=== PATIENT | female | born 1950 | race Caucasian/White ===

== ENCOUNTER 2018-07-24 06:03 | Day surgery (SDC) | payer MEDICARE, OTHER ==
[~2018-07-24 06:03] MED LIST: ACETAMINOPHEN 1,000 MG/100 ML BTL IV ONE; CEFAZOLIN 2 Gram 2 GM/50 ML BAG IVPB PRN; CELECOXIB 100 MG CAPSULE PO ONE; FAMOTIDINE 20MG TABLET PO ONE; MECLIZINE 25 MG TABLET PO ONE; METOCLOPRAMIDE 10 MG TABLET PO ONE; VANCOMYCIN HCL 1,000 MG in DEXTROSE 5 % IN WATER 250 ML IVPB ONE
[2018-07-24] MEDS ORDERED: EPHEDRINE SULFATE 50 MG/ML ML IV ONE (06:04)
[2018-07-24] MEDS ORDERED: BUPIVACAINE LIPOSOME 266MG/20ML VIAL IV ONE (06:04)
[2018-07-24] MEDS ORDERED: BUPIVACAINE 0.5% W/EPI MPF 30 ML VIAL IVP ONE (06:04)
[2018-07-24] MEDS ORDERED: MORPHINE SULFATE 10 MG/ML VIAL IVP ONE (06:04)
[2018-07-24] MEDS ORDERED: MIDAZOLAM HCL 2MG/2ML VIAL IV ONE (06:04)
[2018-07-24] MEDS ORDERED: VANCOMYCIN HCL 1 GM VIAL IVPB ONE (06:04)
[2018-07-24] MEDS ORDERED: DEXAMETHASONE 4 MG/ML 1ML VIAL IVP ONE (06:04)
[2018-07-24] MEDS ORDERED: KETOROLAC 30 MG/ML VIAL IVP ONE (06:04)
[2018-07-24] MEDS ORDERED: TRANEXAMIC ACID 1,000 MG/10 ML ML IV ONE ×2 (06:04)
[2018-07-24] MEDS ORDERED: **ER** KETAMINE HCL 500MG/10ML VIAL IV ONE (06:04)
[2018-07-24] MEDS ORDERED: ROPIVACAINE HCL (NAROPIN) /PF 5MG/ML 20ML VIAL IV ONE (06:04)
[2018-07-24] MEDS ORDERED: PROPOFOL 10 MG/ML VIAL IV ONE (06:04)
[2018-07-24 07:05] LABS: ABO GROUP O; ANTIBODY SCREEN NEGATIVE (NEGATIVE); RH TYPE POSITIVE
[2018-07-24] MEDS ORDERED: PROMETHAZINE HCL 12.5 MG in 0.9 % SODIUM CHLORIDE 100ML 50 ML IVPB PRN (08:14)
[2018-07-24] MEDS ORDERED: MAGNESIUM HYDROXIDE 30 ML UDC PO PRN (08:14)
[2018-07-24] MEDS ORDERED: METOCLOPRAMIDE HCL 10 MG/2 ML VIAL IVP PRN (08:14)
[2018-07-24] MEDS ORDERED: DIPHENHYDRAMINE HCL 25 MG CAPSULE PO PRN (08:14)
[2018-07-24] MEDS ORDERED: ZOLPIDEM TARTRATE 5 MG TABLET PO PRN (08:14)
[2018-07-24] MEDS ORDERED: ACETAMINOPHEN 325 MG TAB PO PRN (08:14)
[2018-07-24] MEDS ORDERED: BISACODYL 10 MG SUPP RC PRN (08:14)
[2018-07-24] MEDS ORDERED: ACETAMINOPHEN W/ CODEINE 300MG/60MG TABLET PO PRN ×2 (08:14)
[2018-07-24] MEDS ORDERED: KETOROLAC 30 MG/ML VIAL IVP PRN ×2 (08:14)
[2018-07-24] MEDS ORDERED: NALOXONE 0.4 MG/1 ML VIAL IVP PRN (08:14)
[2018-07-24] MEDS ORDERED: ONDANSETRON HCL IV 4 MG/2 ML VIAL IVP PRN (08:14)
[2018-07-24] MEDS ORDERED: AL HYDROX/MAG HYDROX 30ML UD PO PRN (08:14)
[2018-07-24] MEDS ORDERED: HYDROMORPHONE HCL 2 MG/ML VIAL IM PRN ×2 (08:14)
[2018-07-24] MEDS ORDERED: ACETAMINOPHEN W/ CODEINE 300MG/30MG TABLET PO PRN ×2 (08:14)
[2018-07-24] MEDS ORDERED: TRAMADOL HCL 50 MG TABLET PO PRN ×2 (08:14)
[2018-07-24] MEDS ORDERED: HYDROCODONE/APAP 5/325MG TABLET PO PRN ×2 (08:14)
[2018-07-24] MEDS: HYDROCODONE/APAP 7.5/325MG TABLET PO PRN ×3 (12:02→18:32)
[2018-07-24] MEDS: DOCUSATE SODIUM 100 MG CAPSULE PO SCH ×2 (12:02→21:44)
[2018-07-24] MEDS: FERROUS SULFATE 325 MG TAB PO SCH ×2 (12:03→21:44)
[2018-07-24] MEDS: DEXTROSE 5 % AND 0.9 % NACL 1,000 ML IV PRN ×2 (13:50→22:38)
--- NOTE | 2018-07-24 14:36 | Rehab Evaluation ---
Patient Information - Patient Information Diagnosis: R knee OA Ordered Treatment: PT Evaluate and Treat Status: Initial Evaluation Surgery: Yes (R TKA) Date of Surgery: 07/24/18 Past Medical/Surgical Hx: PAST MEDICAL/SURGICAL HISTORY Past Surgical History T&A; back sx; hysterectomy; left knee scope x2; rt scope x1; colonoscopy; cardiac catheterization with 2 stents placement 07/2015 PMH - Respiratory Hx Respiratory Disorders No PMH - Cardiovascular Hx Cardiovascular Disorders Yes Hx Cardiac Catheterization Yes: 2014 Hx Heart Attack No Hx Hypertension Yes: meds good control-cardiac clearance obtained Hx Coronary Stent Yes: 2014 x2 stents Exercise Tolerance Good PMH - Neuro Hx Neurological Disorders Yes Hx Headaches Yes: once in awhile-sinus TELLES PMH - GI Hx Gastrointestinal Disorders Yes Hx Gastroesophageal Reflux Yes Hx Ulcer Yes: healed up PMH - Hx Genitourinary Disorders No Comment: hyst PMH - Endocrine Hx Endocrine Disorders No PMH - Musculoskeletal Hx Musculoskeletal Disorders Yes Hx Arthritis Yes: knees & wrists Hx Back Injury Yes: at work PMH - Psych Hx Psychiatric Problems No PMH - Hematology/Oncology Hx Hematology/Oncology Yes Disorders Hx Anemia Yes: in past-not now Hx Blood Transfusion Reaction No Premorbid Status: Detail (Patient was previously IND with all mobility and transfers.) Social History: Detail (Patient currently lives in a 2 story home with her significant other. She will not be using the 2nd floor initially. She has 3 steps to enter the home with no hand rails. The patient has a tub/shower combination and an elevated toilet in the bathroom. She owns a front wheeled walker.) Precautions: [place], Fall, Other (WBAT on R LE) - Time With Patient Total Time Spent With Patient (Min): 30 Treatment Procedures: Detail (Initial evaluation, gait training, and exercise education.) Subjective Information - Subjective Information Per Patient (Patient was up in chair upon arrival. Patient reports 5-6/10 R knee pain.) Objective Data - Pain Pain Present: Yes (R knee) Pain Intensity: 5 Pain Scale Used: Numeric (1 - 10) - Mental Status Patient Orientation: Oriented x3 - Visual Perception Appears within normal limits for therapeutic activities - ROM Not within normal limits (R knee ROM is limited due to status post-surgery) - Strength/Tone Not within normal limits (Strength is limited due to status post-surgery. Patient has functional strength during ambulation and transfers.) - Bed Mobility Independent (Patient performed sit to supine transfer IND with supervision for safety.) - Transfers Independent (Patient performed sit to stand and toilet transfers with SBA for safety.) - Balance Balance Sitting: Good Balance Standing: Good - Sensation Intact - Gait Detail (Patient ambulated 40' with a front wheeled walker and SBA for safety. WBAT on R LE.) Therapy Assessment - Therapy Assessment Detail (Patient was IND with all mobility and transfers. Feel patient will progress well with mobility. Patient was left lying in bed with call light in reach.) Patient Education - Patient Education Teaching Topic: Exercise/Activity (Patient was educated on heel slides, ankle pumps, quad sets, hamstring sets, glut sets, and straight leg raises.) Response: Return Demonstration, Verbalize Understanding Teaching Method: Demonstration, Audiovisual Teaching Recipient: Patient Barriers To Learning: Age Related Problem List - Problem List Physical Therapy Problem List: Detail (1) limited R knee ROM 2) limited R knee strength) Goals - Goals Physical Therapy Goals: 1) Educate patient on modified SLR. 2) Patient will ambulate a flight of 3 steps with a folded walker and hand rail with supervision for safety. Prognosis - Prognosis Good Plan - Plan Physical Therapy Plan: Pt will be seen 1-2 times for stair training, then be discharged to home PT.
[2018-07-24] MEDS: VANCOMYCIN HCL 1,000 MG in DEXTROSE 5 % IN WATER 250 ML IVPB SCH ×2 (19:54)
--- NOTE | 2018-07-24 22:14 | Operative Note ---
DATE OF SURGERY: 07/24/2018 PREOPERATIVE DIAGNOSIS: END-STAGE RIGHT KNEE ARTHROSIS. POSTOPERATIVE DIAGNOSIS: END-STAGE RIGHT KNEE ARTHROSIS. PROCEDURE: RIGHT TOTAL KNEE ARTHROPLASTY. SURGEON: JUHI KWON M.D. ANESTHESIA: SPINAL. ARIELLA CEBALLOS CRNA. COMPLICATIONS: NONE. BLOOD LOSS: MINIMAL. TOURNIQUET TIME: APPROXIMATELY 60 MINUTES. OPERATIVE FINDINGS: Severe [id number] erosion in the medial compartment, particularly the medial tibial plateau and arthrosis throughout. COMPONENTS PLACED: 2 gram Vancomycin, cemented [employer] Journey II Oxinium size 6 femoral component, size 6 tibial baseplate, a 9 mm thick tibial poly insert, and a 35 mm cemented patellar component. INDICATIONS FOR OPERATION: This is a 67-year-old female with end-stage right knee arthrosis. She failed nonoperative treatments and is scheduled for a total knee arthroplasty. I explained the risks and benefits to her in detail for her diagnosis and procedures including but not limited to infection, nerve injury, vessel injury, persistent pain, persistent numbness and tingling in her knee, periprosthetic fracture, need for resection arthroplasty should the components become infected or loosened, nerve injury, vessel injury, blood clot, need for anticoagulation to prevent blood clots and the risks associated with these medications and all of her questions were answered. The rehab and course were outlined and she agreed to proceed. PROCEDURE: The patient was brought to the O.R. and placed in the supine position for the proper surgery. Spinal anesthesia was induced and her right lower extremity and knee were prepped and draped in sterile fashion. The right knee was prepped again with ChloraPrep after it was draped. Intraoperative time- out was performed. Next, the leg was exsanguinated with the Esmarch. An incision was marked, infiltrated with 0.5% Marcaine with Epinephrine. The knee was flexed and the tourniquet inflated to 215 mmHg pressure. Next, the skin and subcutaneous tissues were dissected down to the fascia. I incised the capsule medially around the medial border of the patella to the tibial tubercle. I incised the vastus medialis in line with its fibers in a mid vastus approach and everted the patella. We partially resected the retropatellar fat pad. We flexed the knee, placed bent Hohmann's in and exposed the distal femur. She had severe zady-mg-[id number] erosion of the medial compartment particularly. Next, we drilled the intercondylar drill hole and inserted the intramedullary guide rea with a 6 degree cutting block. Aligned off the distal femoral condyles and pinned it in place in the +2 mm position. We cut the distal femoral condyles. We then placed the sizing jig on the distal femoral condyle and sized it to be right on size 6. Through the previously placed pinholes, we placed the 5-in-1 cutting jig. We dialed in the anterior cut so it would come out flush without notching. We then cut that cut first and it was a good flush cut and then we pinned the cutting jig to complete its fixation and then cut the remainder of the chamfer cuts in the usual fashion. Next, we placed a size 6 trial component, centered it, pinned it, and removed osteophytes off the periphery and inserted the femoral resection collar and resected out the cruciate bone block with a reamer and boxed osteotome. Attention was turned to the tibia. We seated the extra-alignment jig off the tibia after we exposed it with the spikes in the intertubercular groove two fingerbreadths distal to the anterior tibial cortex referencing for a 9 mm cut off the higher lateral plateau so that we could cover the significant erosion of the medial tibial plateau using our resection guide. We had a good adjustment there and then we pinned it in place and then we cut the tibia and it covered our erosion just enough. Next, we removed osteophytes off the posterior femoral condyles, checked flexion and extension gaps. We had basically had a 9 mm thick poly insert in extension and flexion and 2 to 3 mm of varus/valgus laxity. Overall alignment of cuts in extension was in anatomic valgus orientation with the alignment rea centered on the hip joint and ankle joint. We took the knee into flexion. We sized the baseplate to be a size 6. We replaced all trial components, again set the rotation of the tibial baseplate with the alignment rea centered on the hip joint and ankle joint and marked electrocautery espinoza on the anterior tibial cortex off the laser espinoza. Next, attention was turned to the patella. We measured the patella to be 22 mm. Set the cutting jig at 13 to allow for a 9 mm thick poly insert. We cut the patella. It was right on 13. We then chamfered off the lateral patellar facet, sized to be 35. We medialized as much as possible. We drilled three peg holes and then placed the trial patellar component and then mixed cement. The patella tracked nicely hands free into full extension into full extension to 0, flexion to 130 to 140 degrees, again symmetric flexion and extension gaps were found. Next, we took the knee into flexion, exposed the tibia. We seated the tibial baseplate off the previously placed electrocautery espinoza and pinned it in place and then drilled out and keel-punched the keel hole. We changed gloves, brought in a clean sheet. We copiously irrigated the bony surfaces with pulse lavage and antibiotic solution. We placed the bone plug in the femoral canal hole. We placed the drill in the tibial hole and then pre- coated both surfaces and then impacted down the tibial component first, removing excess cement, and then the femoral component and impacted it down, removing excess cement. We placed the trial tibial poly liner and held the knee in extension and let it harden and clamped down the patellar component, removing all excess cement around the edges of the components. Once the cement began to set, we then took the knee into flexion. We distracted the knee with bone hook and sponge, again removing excess cement around the edges of the components. We irrigated and removed any cement around the periphery of the components and then injected the posterior capsule and medial and lateral periosteum with 0.5% Marcaine with Epinephrine, 2 grams of tranexamic acid, and Exparel mixture, which we did inject pre-op too subcutaneous areas. We then started to close the wound with a running #2 Quill suture and the vastus split. We irrigated again. Injected superficially subcutaneous with 0.5% Marcaine with Epinephrine again and then closed the skin with 2-0 Vicryl. Sterile dressing applied. Acticoat and basic dressing. It will be changed prior to discharge tomorrow to LILLIAM dressing. The patient tolerated the procedure well. She will be discharged likely tomorrow with [facility] Nurse and follow-up in two weeks. cc: Dr. Lito Wood JOB NUMBER: [id number] MTDD
[2018-07-25] MEDS: HYDROCODONE/APAP 7.5/325MG TABLET PO PRN ×4 (04:12→15:25)
[2018-07-25] MEDS: DEXTROSE 5 % AND 0.9 % NACL 1,000 ML IV PRN (06:03)
[2018-07-25 06:59] LABS: HEMATOCRIT 36.1 % (35.0-47.0); HEMOGLOBIN 10.9 gm/dl (11.6-16.0)
[2018-07-25] MEDS ORDERED: PATIENT OWN MED: OMEPRAZOLE 40 MG PO SCH (07:00)
[2018-07-25] MEDS: VANCOMYCIN HCL 1,000 MG in DEXTROSE 5 % IN WATER 250 ML IVPB SCH ×2 (07:53)
--- NOTE | 2018-07-25 09:59 | Physical Therapy Tx Note ---
Physical Therapy Tx Note - Treatment Note Tolerated: Good Total Time Spent With Patient: 20 Physical Therapy Tx Note: Detail (Patient was seated at EOB upon arrival. Patient compains of 5-6/10 R knee pain. Patient performed sit to stand and toilet transfers IND with SBA for safety. Patient ambulated 50' with front wheeled walker and SBA for safety. WBAT on R LE. Patient also ambulated a flight of 3 stairs with a folded walker and hand rail with supervision for safety. Patient required verbal cues for correct stair technique. Patient was educated on modified straight leg raise. Patient was left sitting EOB with call light in reach, written instructions for stairs were also left with the patient. ) Physical Therapy Problem List: Detail (1) limited R knee ROM 2) limited R knee strength) Physical Therapy Goals: 1) Educate patient on modified SLR (Goal Met). 2) Patient will ambulate a flight of 3 steps with a folded walker and hand rail with supervision for safety. (Goal Met) Prognosis: Good Physical Therapy Plan: Patient has met all IP goals and will be discharged to home PT.
[2018-07-25] MEDS ORDERED: PATIENT OWN MED: ATORVASTATIN 80 MG PO SCH (10:00)
[2018-07-25] MEDS ORDERED: PATIENT OWN MED: EZETIMIBE 10 MG PO SCH (10:00)
[2018-07-25] MEDS ORDERED: PATIENT OWN MED: METOPROLOL SUCCINATE 50 MG PO SCH (10:00)
[2018-07-25] MEDS ORDERED: RIVAROXABAN 10 MG TABLET PO SCH (10:00)
[2018-07-25] MEDS ORDERED: PATIENT OWN MED: LISINOPRIL 10 MG PO SCH (10:00)
[2018-07-25] MEDS ORDERED: CELECOXIB 100 MG CAPSULE PO SCH (10:00)
[2018-07-25] MEDS: DOCUSATE SODIUM 100 MG CAPSULE PO SCH (10:56)
[2018-07-25] MEDS: FERROUS SULFATE 325 MG TAB PO SCH (10:57)
--- NOTE | 2018-07-25 11:40 | Rehab Evaluation ---
Patient Information - Patient Information Diagnosis: R knee OA Ordered Treatment: OT Evaluate and Treat Status: Initial Evaluation Surgery: Yes (R TKA) Date of Surgery: 07/24/18 Past Medical/Surgical Hx: PAST MEDICAL/SURGICAL HISTORY Past Surgical History T&A; back sx; hysterectomy; left knee scope x2; rt scope x1; colonoscopy; cardiac catheterization with 2 stents placement 07/2015 PMH - Respiratory Hx Respiratory Disorders No PMH - Cardiovascular Hx Cardiovascular Disorders Yes Hx Cardiac Catheterization Yes: 2014 Hx Heart Attack No Hx Hypertension Yes: meds good control-cardiac clearance obtained Hx Coronary Stent Yes: 2014 x2 stents Exercise Tolerance Good PMH - Neuro Hx Neurological Disorders Yes Hx Headaches Yes: once in awhile-sinus TELLES PMH - GI Hx Gastrointestinal Disorders Yes Hx Gastroesophageal Reflux Yes Hx Ulcer Yes: healed up PMH - Hx Genitourinary Disorders No Comment: hyst PMH - Endocrine Hx Endocrine Disorders No PMH - Musculoskeletal Hx Musculoskeletal Disorders Yes Hx Arthritis Yes: knees & wrists Hx Back Injury Yes: at work PMH - Psych Hx Psychiatric Problems No PMH - Hematology/Oncology Hx Hematology/Oncology Yes Disorders Hx Anemia Yes: in past-not now Hx Blood Transfusion Reaction No Premorbid Status: Detail (Pt. was previously Ind. with all I/ADL's including self-care, meal prep, driving, and mobility.) Social History: Detail (Patient currently lives in a 2 story home with her significant other. She will not be using the 2nd floor initially. She has 3 steps to enter the home with no hand rails. The patient has a tub/shower combination and an elevated toilet in the bathroom. She owns a front wheeled walker. Significant other is able to assist if needed.) Precautions: [place], Fall, Other (WBAT on R LE) - Time With Patient Total Time Spent With Patient (Min): 25 Treatment Procedures: Detail (OT EVAL LOW. Session was concluded with pt. seated at EOB, call light and bedside tray within reach. Bed mobility not observed; pt. was seated EOB upon arrival also.) Objective Data - Mental Status Patient Orientation: Oriented x3 - Visual Perception Appears within normal limits for therapeutic activities - ROM Within normal limits (BUE WFL) - Strength/Tone Within normal limits (BUE WFL) - Coordination Appears within normal limits for therapeutic activities - Transfers Independent (sit<>stand modified Ind. with walker from EOB) - Balance Balance Sitting: Good Balance Standing: Fair - Sensation Intact (pt. reported no numbness in hands) - ADL's/IADL's Detail (Educ. provided in adaptive dressing techniques and use of vessel operator with application to ADL's. Pt. demo. ability to thread RLE pant leg and don and doff sock independently while seated EOB. Pt. declined to get dressed d/t nursing staff still needing to change dressing. Pt denied any Q's or concerns regarding returning to home tasks.) Therapy Assessment - Therapy Assessment Detail (Pt. does not need in-pt. OT services at this time. Pt. would benefit from and in-home OT eval. She has assistance at home if needed during recovery.) Patient Education - Patient Education Teaching Topic: Equipment Use (vessel operator, adaptive dressing techniques, discussed bathroom AE options) Response: Return Demonstration, Verbalize Understanding Teaching Method: Discussion, Demonstration Teaching Recipient: Patient Barriers To Learning: None Problem List - Problem List Physical Therapy Problem List: Detail (1) limited R knee ROM 2) limited R knee strength) Goals - Goals Physical Therapy Goals: 1) Educate patient on modified SLR (Goal Met). 2) Patient will ambulate a flight of 3 steps with a folded walker and hand rail with supervision for safety. (Goal Met) Prognosis - Prognosis Good Plan - Plan Physical Therapy Plan: Patient has met all IP goals and will be discharged to home PT. Occupational Therapy Plan: d/c from in-pt. OT services. Educ. was provided to call rehab dept. if Q's arise.
== END 2018-07-25 15:40 | disposition home health service (06) ==
LOC: SUR 06:03 → MEDSURG 11:22 → SUR 07-25 15:40
PROVIDERS: ATTEND Orthopaedic Surgery
DX: M17.11 Unilateral primary osteoarthritis, right knee (principal); I10 Essential (primary) hypertension; E78.00 Pure hypercholesterolemia, unspecified; I25.10 Atherosclerotic heart disease of native coronary artery without angina pectoris; Z95.5 Presence of coronary angioplasty implant and graft
CPT/HCPCS: 27447; 01402; 64447; 85018; 85014; 86900; 86901; 86850; 76942; J1885; J2405; J3370 ×2; J0690; C9290; J3490; J2795; J2270; G8978; G8979 ×2; G8980; G8987; G8988; G8989; J7042; J7060

== ENCOUNTER 2018-11-20 05:45 | Day surgery (SDC) | payer MEDICARE, OTHER ==
[2018-11-20] MEDS ORDERED: TRANEXAMIC ACID 1,000 MG/10 ML ML IV ONE ×2 (05:46)
[2018-11-20] MEDS ORDERED: BUPIVACAINE 0.5% W/EPI MPF 30 ML VIAL IVP ONE (05:46)
[2018-11-20] MEDS ORDERED: ROPIVACAINE HCL (NAROPIN) /PF 5MG/ML 20ML VIAL IV ONE (05:46)
[2018-11-20] MEDS ORDERED: HYDROMORPHONE HCL 2 MG/ML VIAL IV ONE (05:46)
[2018-11-20] MEDS ORDERED: DEXAMETHASONE 4 MG/ML 1ML VIAL IVP ONE (05:46)
[2018-11-20] MEDS ORDERED: KETOROLAC 30 MG/ML VIAL IVP ONE (05:46)
[2018-11-20] MEDS ORDERED: BUPIVACAINE LIPOSOME 266MG/20ML VIAL IV ONE (05:46)
[2018-11-20] MEDS ORDERED: KETAMINE HCL 100MG/1ML VIAL INJ ONE (05:46)
[2018-11-20] MEDS ORDERED: VANCOMYCIN HCL 1 GM VIAL IVPB ONE ×2 (05:46)
[2018-11-20] MEDS ORDERED: MIDAZOLAM HCL 2MG/2ML VIAL IV ONE (05:46)
[2018-11-20] MEDS ORDERED: PROPOFOL 10 MG/ML VIAL IV ONE (05:46)
[2018-11-20] MEDS ORDERED: EPHEDRINE SULFATE 50 MG/ML ML IV ONE (05:46)
[2018-11-20] MEDS ORDERED: FAMOTIDINE 20MG TABLET PO ONE (06:00)
[2018-11-20] MEDS ORDERED: VANCOMYCIN HCL 1,000 MG in DEXTROSE 5 % IN WATER 250 ML IVPB ONE ×2 (06:00)
[2018-11-20] MEDS ORDERED: METOCLOPRAMIDE 10 MG TABLET PO ONE (06:00)
[2018-11-20] MEDS ORDERED: CEFAZOLIN 2 Gram 2 GM/50 ML BAG IVPB ONE (06:00)
[2018-11-20] MEDS ORDERED: CELECOXIB 100 MG CAPSULE PO ONE (06:00)
[2018-11-20] MEDS ORDERED: MECLIZINE 25 MG TABLET PO ONE (06:00)
[2018-11-20] MEDS ORDERED: ACETAMINOPHEN 1,000 MG/100 ML BTL IV ONE (06:00)
[2018-11-20 07:24] LABS: ABO GROUP O; ANTIBODY SCREEN NEGATIVE (NEGATIVE); RH TYPE POSITIVE
[2018-11-20] MEDS ORDERED: ACETAMINOPHEN W/ CODEINE 300MG/60MG TABLET PO PRN ×2 (08:25)
[2018-11-20] MEDS ORDERED: MAGNESIUM HYDROXIDE 30 ML UDC PO PRN (08:25)
[2018-11-20] MEDS ORDERED: PROMETHAZINE HCL 12.5 MG in 0.9 % SODIUM CHLORIDE 100ML 50 ML IVPB PRN (08:25)
[2018-11-20] MEDS ORDERED: NALOXONE 0.4 MG/1 ML VIAL IVP PRN (08:25)
[2018-11-20] MEDS ORDERED: ZOLPIDEM TARTRATE 5 MG TABLET PO PRN (08:25)
[2018-11-20] MEDS ORDERED: HYDROCODONE/APAP 5/325MG TABLET PO PRN ×2 (08:25)
[2018-11-20] MEDS ORDERED: ONDANSETRON HCL IV 4 MG/2 ML VIAL IVP PRN (08:25)
[2018-11-20] MEDS ORDERED: HYDROCODONE/APAP 7.5/325MG TABLET PO PRN (08:25)
[2018-11-20] MEDS ORDERED: AL HYDROX/MAG HYDROX 30ML UD PO PRN (08:25)
[2018-11-20] MEDS ORDERED: ACETAMINOPHEN 325 MG TAB PO PRN (08:25)
[2018-11-20] MEDS ORDERED: DIPHENHYDRAMINE HCL 25 MG CAPSULE PO PRN (08:25)
[2018-11-20] MEDS ORDERED: ACETAMINOPHEN W/ CODEINE 300MG/30MG TABLET PO PRN ×2 (08:25)
[2018-11-20] MEDS ORDERED: BISACODYL 10 MG SUPP RC PRN (08:25)
[2018-11-20] MEDS ORDERED: KETOROLAC 30 MG/ML VIAL IVP PRN ×2 (08:25)
[2018-11-20] MEDS ORDERED: METOCLOPRAMIDE HCL 10 MG/2 ML VIAL IVP PRN (08:25)
[2018-11-20] MEDS ORDERED: TRAMADOL HCL 50 MG TABLET PO PRN ×2 (08:25)
[2018-11-20] MEDS ORDERED: HYDROMORPHONE HCL 2 MG/ML VIAL IM PRN ×2 (08:25)
[2018-11-20] MEDS ORDERED: PNEUM 13-VAL/PF 0.5 ML IM ONE (11:14)
[2018-11-20] MEDS: PANTOPRAZOLE SODIUM 40 MG TABLET PO SCH (12:17)
--- NOTE | 2018-11-20 16:39 | Rehab Evaluation ---
Patient Information - Patient Information Diagnosis: L knee OA Ordered Treatment: PT Evaluate and Treat Status: Initial Evaluation Surgery: Yes (L TKA) Date of Surgery: 11/20/18 Past Medical/Surgical Hx: PAST MEDICAL/SURGICAL HISTORY Past Surgical History RTKA 07-24-18 T&A; back sx; hysterectomy; left knee scope x2; rt scope x1; colonoscopy; cardiac catheterization with 2 stents placement 07/2015 PMH - Respiratory Hx Respiratory Disorders No PMH - Cardiovascular Hx Cardiovascular Disorders Yes Hx Cardiac Catheterization Yes: 2014 Hx Heart Attack No Hx Hypertension Yes: meds good control-cardiac clearance obtained Hx Coronary Stent Yes: 2014 x2 stents Exercise Tolerance Fair PMH - Neuro Hx Neurological Disorders Yes Hx Headaches Yes: once in awhile-sinus TELLES PMH - GI Hx Gastrointestinal Disorders Yes Hx Gastroesophageal Reflux Yes Hx Ulcer Yes: healed up PMH - Hx Genitourinary Disorders No Comment: hyst PMH - Endocrine Hx Endocrine Disorders No PMH - Musculoskeletal Hx Musculoskeletal Disorders Yes Hx Arthritis Yes: knees & wrists Hx Back Injury Yes: at work PMH - Psych Hx Psychiatric Problems No PMH - Hematology/Oncology Hx Hematology/Oncology Yes Disorders Hx Anemia Yes: in past-not now Hx Blood Transfusion Reaction No Premorbid Status: Detail (Prior to surgery the patient was independent with all mobility.) Social History: Detail (The patient lives with spouse in a 2 story house ( patient will be staying on first floor) with 3 steps and no railings at the enterance. The bathroom is equipped with tub/shower combination and an elevated toilet seat. No grab bars are present. The patient has a front wheeled walker , shower bench and a cane.) Precautions: [place], Fall, Other (WBAT on the L LE.) - Time With Patient Total Time Spent With Patient (Min): 30 Treatment Procedures: Detail (Initial Evaluation, gait training) Subjective Information - Subjective Information Per Patient (The patient had no complaints of pain. The patient has complaints of nausea) Objective Data - Mental Status Patient Orientation: Oriented x3 - Visual Perception Appears within normal limits for therapeutic activities - ROM Not within normal limits (The patient's L knee AROM is limited secondary surgery. All other LE AROM is WNL.) - Strength/Tone Not within normal limits (The patient's L LE strength was not tested secondary to s/p surgery however is functional ie: patient completed SLR. R LE is WFL.) - Bed Mobility Independent (Independent with supine to and from sit and scooting up in bed.) - Transfers Independent (Independent with sit to and from stand and toilet transfer.) - Balance Balance Sitting: Good Balance Standing: Good - Gait Detail (The patient ambulated with front wheeled walker WBAT L LE independently a distance of 30 feet x 1.) Therapy Assessment - Therapy Assessment Detail (The patient was independent with bed mobility, ambulation and transfers. Feel the patient will progress well with mobility.) Problem List - Problem List Physical Therapy Problem List: Detail ( Decreased L knee AROM and decreased L LE strength) Goals - Goals Physical Therapy Goals: 1) The patient will be independent with TKA HEP. 2) The patient will ambulate on strairs with supervision for safety. Prognosis - Prognosis Good Plan - Plan Physical Therapy Plan: 1-2 sessions for instruction in HEP and gait training on stairs.
[2018-11-20] MEDS: DEXTROSE 5 % AND 0.9 % NACL 1,000 ML IV PRN (17:13)
[2018-11-20] MEDS: VANCOMYCIN HCL 1,000 MG in DEXTROSE 5 % IN WATER 250 ML IVPB SCH ×2 (18:57)
[2018-11-20] MEDS: HYDROCODONE/APAP 7.5/325MG TABLET PO PRN ×2 (19:02→22:37)
[2018-11-20] MEDS: DOCUSATE SODIUM 100 MG CAPSULE PO SCH (21:49)
[2018-11-20] MEDS: FERROUS SULFATE 325 MG TAB PO SCH (21:49)
[2018-11-21] MEDS: DEXTROSE 5 % AND 0.9 % NACL 1,000 ML IV PRN (01:58)
[2018-11-21] MEDS: HYDROCODONE/APAP 7.5/325MG TABLET PO PRN ×3 (03:58→11:56)
[2018-11-21] MEDS: PANTOPRAZOLE SODIUM 40 MG TABLET PO SCH (06:15)
[2018-11-21 06:58] LABS: HEMATOCRIT 38.6 % (35.0-47.0)
[2018-11-21] MEDS: VANCOMYCIN HCL 1,000 MG in DEXTROSE 5 % IN WATER 250 ML IVPB SCH ×2 (08:01)
[2018-11-21] MEDS: FERROUS SULFATE 325 MG TAB PO SCH (09:50)
[2018-11-21] MEDS: DOCUSATE SODIUM 100 MG CAPSULE PO SCH (09:50)
[2018-11-21] MEDS ORDERED: LISINOPRIL 10 MG TABLET PO SCH (10:00)
[2018-11-21] MEDS ORDERED: RIVAROXABAN 10 MG TABLET PO SCH (10:00)
[2018-11-21] MEDS ORDERED: METOPROLOL SUCC 50 MG TABLET PO SCH (10:00)
[2018-11-21] MEDS ORDERED: CELECOXIB 100 MG CAPSULE PO SCH (10:00)
[2018-11-21] MEDS ORDERED: ATORVASTATIN 20 MG TABLET PO SCH (10:00)
[2018-11-21] MEDS ORDERED: EZETIMIBE 10 MG TABLET PO SCH (10:00)
--- NOTE | 2018-11-21 10:45 | Physical Therapy Tx Note ---
Physical Therapy Tx Note - Treatment Note Tolerated: Good Total Time Spent With Patient: 25 Physical Therapy Tx Note: Detail (The patient completed LTKA exercises including: heel slides supine, ankle pumps, quad sets, gluteal sets, hamstring sets, SLR. The patient ambulated with front wheeled walker a distance of 54 feet WBAT on the L LE, independently. The patient has met all inpatient goals and is discharged from inpatient therapy. The patient is to receive Home PT.) Physical Therapy Problem List: Detail ( Decreased L knee AROM and decreased L LE strength) Physical Therapy Goals: 1) The patient will be independent with TKA HEP. (Goal Met). 2) The patient will ambulate on strairs with supervision for safety. ( Goal met) Physical Therapy Plan: The patient is discharged from inpatient secondary to all inpatient PT goals have been met.
--- NOTE | 2018-11-21 10:49 | Rehab Evaluation ---
Patient Information - Patient Information Diagnosis: L knee OA Ordered Treatment: OT Evaluate and Treat Status: Initial Evaluation Surgery: Yes (L TKA) Date of Surgery: 11/20/18 Past Medical/Surgical Hx: PAST MEDICAL/SURGICAL HISTORY Past Surgical History RTKA 07-24-18 T&A; back sx; hysterectomy; left knee scope x2; rt scope x1; colonoscopy; cardiac catheterization with 2 stents placement 07/2015 PMH - Respiratory Hx Respiratory Disorders No PMH - Cardiovascular Hx Cardiovascular Disorders Yes Hx Cardiac Catheterization Yes: 2014 Hx Heart Attack No Hx Hypertension Yes: meds good control-cardiac clearance obtained Hx Coronary Stent Yes: 2014 x2 stents Exercise Tolerance Fair PMH - Neuro Hx Neurological Disorders Yes Hx Headaches Yes: once in awhile-sinus TELLES PMH - GI Hx Gastrointestinal Disorders Yes Hx Gastroesophageal Reflux Yes Hx Ulcer Yes: healed up PMH - Hx Genitourinary Disorders No Comment: hyst PMH - Endocrine Hx Endocrine Disorders No PMH - Musculoskeletal Hx Musculoskeletal Disorders Yes Hx Arthritis Yes: knees & wrists Hx Back Injury Yes: at work PMH - Psych Hx Psychiatric Problems No PMH - Hematology/Oncology Hx Hematology/Oncology Yes Disorders Hx Anemia Yes: in past-not now Hx Blood Transfusion Reaction No Premorbid Status: Detail (Prior to surgery the patient was independent with all mobility, meal prep, laundry and home mgmt tasks. Spouse will be available to assist.) Social History: Detail (The patient lives with spouse in a 2 story house with basement, (patient will be staying on first floor) with 3 steps and one railings at the entrance. The bathroom is equipped with tub/shower combination and an elevated toilet seat. No grab bars are present. The patient has a front wheeled walker , shower bench and a cane.) Precautions: [place], Fall, Other (WBAT on the L LE.) - Time With Patient Total Time Spent With Patient (Min): 40 Treatment Procedures: Detail (OT eval low complexity) Subjective Information - Subjective Information Per Patient Objective Data - Pain Pain Present: Yes (01/21) - Mental Status Patient Orientation: Oriented x3 - Visual Perception Appears within normal limits for therapeutic activities - ROM Within normal limits (Vipul UE AROM WNL) - Strength/Tone Within normal limits (Vipul UE strength WNL) - Coordination Appears within normal limits for therapeutic activities - Bed Mobility Independent (Ind with supine to sit and sit to supine.) - Transfers Independent (Ind with sit to stand from EOB.) - Balance Balance Sitting: Good Balance Standing: Good - Sensation Intact - Gait Detail (Pt ambulating in room with 2 wheeled walker Indly.) - ADL's/IADL's Detail (Pt educated and able to demonstrate Ind with modified LE dressing techniques including doffing briefs, donning underwear, pants and tennis shoes. Reviewed shower and kitchen safety and modifications, pt able to verbalize understanding.) Therapy Assessment - Therapy Assessment Detail (Pt is Ind with modified LE dressing techniques.) Problem List - Problem List Physical Therapy Problem List: Detail ( Decreased L knee AROM and decreased L LE strength) Occupational Therapy Problem List: Detail (No current IP OT problems identified. ) Goals - Goals Physical Therapy Goals: 1) The patient will be independent with TKA HEP. 2) The patient will ambulate on strairs with supervision for safety. Occupational Therapy Goals: No current IP OT goals identified. Prognosis - Prognosis Good Plan - Plan Physical Therapy Plan: 1-2 sessions for instruction in HEP and gait training on stairs. Occupational Therapy Plan: No further IP OT recommended. Thank you for this referral.
--- NOTE | 2018-11-22 17:39 | Operative Note ---
PREOPERATIVE DIAGNOSIS: LEFT KNEE END-STAGE ARTHROSIS. POSTOPERATIVE DIAGNOSIS: LEFT KNEE END-STAGE ARTHROSIS. OPERATION: LEFT TOTAL KNEE ARTHROPLASTY. SURGEON: JUHI KWON MD ANESTHESIA: SPINAL. 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 COMPLICATIONS: NONE. BLOOD LOSS: MINIMAL. OPERATIVE FINDINGS: [id number] medial compartment patellofemoral severe arthrosis. INDICATION FOR OPERATION: This is a 67-year-old female who is well-known to myself. She is status post right total knee arthroplasty done a while ago and now scheduled for the left. I explained the risks, benefits in detail for diagnosis and procedures including but not limited to infection, nerve injury, vessel injury, persistent pain, numbness, tingling in her knee, periprosthetic fracture, need for resection, arthroplasty should components become infected or loosen, nerve injury, vessel injury, or blood clot, need for anticoagulation to prevent blood clots associated with these medications. All of her questions were answered, rehab and healing course were outlined and she agreed to proceed. PROCEDURE: The patient was brought to the OR and placed in the supine position for arthroscopic surgery. Spinal anesthesia induced and her left lower extremity and knee prepped and draped in sterile fashion. The left knee was prepped again with ChloraPrep, and draped. Intraoperative time-out was performed. Next, the leg was exsanguinated with an Esmarch. The knee was flexed and tourniquet inflated to 250 mmHg pressure after injecting the wound with 0.50% Marcaine with Epinephrine, Tranexamic Acid, and Exparel mixture portion of that. Next, the skin and subcutaneous tissue were dissected down. Incised the capsule medially around the medial border of patella to the tibial tubercle. The vastus medialis was split in line with its fibers in a mid vastus approach of the patella. Partially resected the retropatellar fat pad, flexed the knee. She had severe [id number] arthrosis throughout and severe spurs and massive spurs around the patella. We trimmed these medially down to the base of the patella geometry. Next, we drilled an intercondylar drill hole, inserted an intramedullary guide rea with a 6 degree cutting block, aligned the distal femoral condyles, pinned them in the +2 mm positioned and cut the distal femoral condyles. Next, we placed a sizing jig on the distal femoral condyle and sized to be a size 5. Through the previously placed pinholes, placed a size 5-in-1 cutting jig. We dialed the anterior cuts so it would come out flush without notch and then cut that cut and it was good cut and we then pinned it and cut the remainder of chamfer cuts in the usual fashion. Next, placed a trial size 5 femoral component, centered it and pinned it. There were large osteophytes medially removed and laterally. We had good fit here. We then inserted the resection collet and reamed down and box osteotome out the cruciate bone block. Next, attention was turned to the tibia. Placed the seated the spikes in the intertubercular groove two fingerbreadths distally off the anterior tibial cortex and referenced for a 7 mm cut off the higher lateral plateau. We pinned that and placed it provisionally with two anterior and posterior pins. We rechecked the alignment with a cutting jig using a drop rea, centered until we had tibial anatomic axis and once we had that aligned properly, we cross-pinned it to complete fixation to cut the tibia. Next, we removed osteophytes off the posterior femoral condyles. Checked the flexion and extension gaps basically sized up to a size 13 mm poly insert allowing for 2-3 mm of varus valgus laxity in flexion and extension. Overall, alignments, cuts, and extensions of the anatomic valgus orientation with alignment rea centered on the hip joint and ankle joint. Took the knee into flexion. Sized the tibial baseplate to a size 5 and replaced all trial components. Set the rotation of the tibial baseplate again extension using the alignment rea centered on the hip joint and ankle joint. Marked with electrocautery espinoza on the anterior tibial cortex off the laser espinoza on the tibial baseplate. Next, attention was turned to the patella. We measured the patella, sized the cutting jig, set the cutting jig to allow for a 9 mm thick poly insert. We cut the patella and remeasured right on . We then sized to be 32, medialized as much as possible, drilled the three peg holes and did a trial range of motion. We placed the trial patellar component and then mixed cement. The patella tracked nicely handsfree with full extension and flexion to 140 degrees, symmetric flexion and extension gaps. Next, we took the knee in flexion, irrigated copiously, and set the tibial baseplate off the previously placed electrocautery espinoza, pinned it in place, and reamed down and keel punched the keel hole. Placed a bone plug in the femoral canal hole, placed the drill bit and left it in the tibial keel hole, and irrigated all of the bony surfaces with pulsatile antibiotic solution. We changed gloves, brought in a clean sheet and pre-coated bony surfaces. Impacted down the tibial component and then the femoral component. Removed excess cement. Placed the trial poly liner, held the knee in extension, and clamped down the patella. Once the cement hardened, took the knee in flexion. Distracted the knee with a bone hook and sponge removing the trial tibial component. Removed any excess cement off the edges of the components. Irrigated copiously and then we injected several sticks of 0.50% Marcaine with Epinephrine , Tranexamic Acid, and Exparel mixture deep to superficial working in the capsule mediolaterally, periosteum mediolaterally, and working out more superficial patellar tendon, quad tendon, vastus, and subcutaneous. Next, we inserted the real tibial poly insert verifying it was interlocked medially and laterally. Final range of motion revealed the same. Next, we closed the knee slight flexion using a running #2 quill suture. The capsule and vastus split. Irrigated again. Closed the skin with 2-0 Vicryl securely. Sterile dressing was applied to be later changed to a LILLIAM dressing prior to discharge tomorrow. cc: Dr. Lito Wood JOB NUMBER: [id number] MTDD
== END 2018-11-21 14:00 | disposition home health service (06) ==
LOC: SUR 05:45 → MEDSURG 10:55 → SUR 11-21 14:00
PROVIDERS: ATTEND Orthopaedic Surgery
DX: M17.12 Unilateral primary osteoarthritis, left knee (principal); I10 Essential (primary) hypertension; E78.00 Pure hypercholesterolemia, unspecified; D64.9 Anemia, unspecified; I25.10 Atherosclerotic heart disease of native coronary artery without angina pectoris; Z95.5 Presence of coronary angioplasty implant and graft
CPT/HCPCS: 27447; 01402; 64447; 85018; 85014; 86900; 86901; 86850; 94761; 90686; G0008; J1885; J3370 ×2; J1170; J0690; J3490 ×3; C9290; J2795; G8978; G8979 ×2; G8980; 97110; 97530; J7042; J7060